=== PATIENT | female | born 1980 | race Caucasian/White ===

== ENCOUNTER 2017-04-08 07:43 | Emergency (ER) | payer OTHER ==
[2017-04-08] MEDS ORDERED: LIDOCAINE PATCH 5% TOP STA (08:10)
--- NOTE | 2017-04-08 08:13 | ED Physician Documentation ---
History of Present Illness - Stated complaint Stated Complaint: LT SIDE SHOULDER PX - Chief complaint Chief Complaint: Ext Problem - Additonal information Additional information: hx from pt 36 female healthy doubts insidious onset R shoulder lateral neck trap region pain few days ago - no trauma etc pain is sharp and stabbing worse with moving neck etc some tingling to R fingers but no weakness or numbness feels a little SOA 2/2 pain a little nausteaed 2/2 pain denies CP denies AP no leg pain or swelling tachy in triage Review of Systems Constitutional: denies: Fever, Chills Cardiac: denies: Chest pain / pressure Respiratory: reports: Dyspnea. denies: Cough GI: reports: Nausea. denies: Abdominal Pain, Vomiting : denies: Now EGA (doubts) Musculoskeletal: reports: Neck pain (right posterior), Back pain (R trap region) Neurologic: denies: Focal weakness, Numbness Endocrine: denies: Easy bruising / bleeding Immunocompromised: denies: Immunocompromised PD PAST MEDICAL HISTORY - Past Medical History Past Medical History: Yes PRODUCTION TRAINER: Ectopic - Past Surgical History Past Surgical History: Yes General: Appendectomy /PRODUCTION TRAINER: Tubal ligation - Present Medications Home Medications: Ambulatory Orders Medication Instructions Recorded Confirmed Cyclobenzaprine [Flexeril] 10 mg PO TID PRN #20 tablet 04/08/17 Ibuprofen [Motrin] 400 mg PO Q6H PRN #30 tablet 04/08/17 Lidocaine Patch 5% [Lidoderm Patch] 1 each TOP DAILY PRN #10 patch 04/08/17 - Allergies Allergies/Adverse Reactions: Allergies Allergy/AdvReac Type Severity Reaction Status Date / Time No Known Drug Allergies Allergy Verified 04/08/17 07:48 - Social History Does the pt smoke?: Yes Smoking Status: Current every day smoker Does the pt drink ETOH?: No Does the pt have substance abuse?: No - Immunizations Immunizations are current?: Yes - POLST Patient has POLST: No PD ED PE NORMAL - Vitals Vital signs reviewed: Yes - Neck Neck: Supple, no meningeal sign, Other (mm tightness and limioted ROM R potserior lat neck extending to trap region) - Cardiac Cardiac: RRR - Respiratory Respiratory: No respiratory distress, Clear bilaterally - Abdomen Abdomen: Soft, Non tender - Derm Derm: Normal color - Extremities Extremities: No edema, No calf tenderness / cord - Neuro Neuro: Alert and oriented X 3, No motor deficit, No sensory deficit Results - Vitals Vitals: Vital Signs - 24 hr 04/08/17 04/08/17 07:46 09:13 Temperature 36.3 C L 36.8 C Heart Rate 110 H 79 Respiratory 24 16 Rate Blood Pressure 128/84 H 118/94 H O2 Saturation 99 98 Oxygen O2 Source Room air - EKG (time done) 0822 Rate: Rate (enter#) (87) Rhythm: NSR [place]: LAD Intervals: Prolonged OK Ischemia: Normal ST segments - Labs Labs: Laboratory Tests 04/08/17 04/08/17 04/08/17 08:10 08:24 08:24 WBC 7.9 RBC 4.88 Hgb 14.0 Hct 42.3 MCV 86.7 MCH 28.7 MCHC 33.1 RDW 13.1 Plt Count 257 MPV 6.7 L Neut # 5.3 Lymph # 1.5 [place] # 0.4 Eos # 0.6 Baso # 0.1 Absolute Nucleated RBC 0.00 Nucleated RBC % 0.0 D-Dimer 245.4 Sodium Potassium Chloride Carbon Dioxide Anion Gap BUN Creatinine Estimated GFR (MDRD) Glucose Calcium Total Bilirubin AST ALT Alkaline Phosphatase Total Protein Albumin Globulin Albumin/Globulin Ratio Lipase Ur Specific [place] 1.025 Urine HCG, Qual NEGATIVE 04/08/17 08:24 WBC RBC Hgb Hct MCV MCH MCHC RDW Plt Count MPV Neut # Lymph # [place] # Eos # Baso # Absolute Nucleated RBC Nucleated RBC % D-Dimer Sodium 137 Potassium 4.3 Chloride 103 Carbon Dioxide 23 Anion Gap 11.0 BUN 11 Creatinine 0.6 Estimated GFR (MDRD) 114 Glucose 108 H Calcium 9.4 Total Bilirubin 0.4 AST 20 ALT 25 Alkaline Phosphatase 56 Total Protein 7.4 Albumin 4.1 Globulin 3.3 Albumin/Globulin Ratio 1.2 Lipase 18 L Ur Specific [place] Urine HCG, Qual - Rads (name of study) CXR Radiology: See rad report (NACPD specifically no pneumo on right and nl mediastinum) PD MEDICAL DECISION MAKING - ED course ED course: pain seems muscular but initial VS showed tachycardia which was concerning so got CXR EKG d dimer based on hx exam labs CXR do not think pt has a PE - not referred pain from cardiac resp or abd source will dc with symptomatic meds Departure - Departure Disposition: 01 Home, Self Care Clinical Impression: Muscle spasm of right shoulder Condition: Good Instructions: ED Spasm Neck No Injury Prescriptions: Cyclobenzaprine [Flexeril] 10 mg PO TID PRN #20 tablet PRN Reason: Spasms Ibuprofen [Motrin] 400 mg PO Q6H PRN #30 tablet PRN Reason: Pain Lidocaine Patch 5% [Lidoderm Patch] 1 each TOP DAILY PRN #10 patch PRN Reason: Pain Comments: All your tests came back reassuring - it does not seem the pain is due to a heart lung or abdominal problem. It appears to be muscle spasm and tightness causing the pain and I have prescribed several mediations to ease your discomfort. Please follow up with your PMD for a recheck if not better in 5 days. Return to the ER if worse or new symptoms develop Forms: Activity restrictions Discharge Date/Time: 04/08/17 09:18
[2017-04-08 08:27] LABS: HCG UR QUAL NEGATIVE
[2017-04-08] MEDS ORDERED: KETOROLAC 60 MG/2 ML VIAL IM STA (08:29)
[2017-04-08 08:35] LABS: BASOPHILS # (AUTO) 0.1 10^3/uL (0.0-0.1); BASOPHILS % (AUTO) 0.9 %; EOSINOPHILS # (AUTO) 0.6 10^3/uL (0.0-0.7); EOSINOPHILS % (AUTO) 7.3 %; LYMPHOCYTES # (AUTO) 1.5 10^3/uL (1.5-3.5); MEAN CORPUSCULAR HEMOGLOBIN 28.7 pg (27.0-31.0); MEAN CORPUSCULAR HGB CONC 33.1 g/dL (32.0-36.0); MEAN CORPUSCULAR VOLUME 86.7 fL (81.0-99.0); MEAN PLATELET VOLUME 6.7 fL (7.9-10.8); MONOCYTES # (AUTO) 0.4 10^3/uL (0.0-1.0); MONOCYTES % (AUTO) 4.9 %; NEUTROPHILS # (AUTO) 5.3 10^3/uL (1.5-6.6); NEUTROPHILS % (AUTO) 67.9 %; PLT - PLATELET COUNT 257 10^3/uL (130-450); RED BLOOD COUNT 4.88 10^6/uL (4.20-5.40); RED CELL DISTRIBUTION WIDTH 13.1 % (12.0-15.0); WHITE BLOOD COUNT 7.9 x10^3/uL (4.8-10.8)
[2017-04-08 08:46] LABS: ALBUMIN 4.1 g/dL (3.2-5.5); ALBUMIN/GLOBULIN RATIO 1.2 (1.0-2.2); BILIRUBIN,TOTAL 0.4 mg/dL (0.2-1.0); CALCIUM 9.4 mg/dL (8.5-10.3); CREATININE 0.6 mg/dL (0.4-1.0); TOTAL PROTEIN 7.4 g/dL (6.7-8.2)
[2017-04-08 09:14] VITALS: BP 118/94
--- NOTE | 2017-04-08 09:17 | XRAY Report ---
EXAM: CHEST RADIOGRAPHY 2 VIEWS EXAM DATE: 04/08/2017. CLINICAL HISTORY: R shoulder pain. SOA. COMPARISON: None. TECHNIQUE: PA and lateral views. FINDINGS: Lungs/Pleura: Normal vasculature. The lungs are clear. No pleural fluid or pneumothorax. A line overl ariana the right apex is artifactual, lung markings are visible superior to it, and the line extends of f of the right apex into the right axilla. Mediastinum: Normal cardiac and mediastinal contours. Bones: Minimal degenerative changes of the spine. IMPRESSION: Normal examination. [facility] Referring Provider Line: [phone] SITE ID: [id number]
== END 2017-04-08 09:18 | disposition home or self-care (01) ==
LOC: ED 07:43
DX: M62.838 Other muscle spasm (principal); R11.0 Nausea; F17.200 Nicotine dependence, unspecified, uncomplicated
CPT/HCPCS: 36415; 71046; 80053; 81025; 83690; 85025; 85379; 93005; 96372; 99283; 99284; A9270

== ENCOUNTER 2017-10-03 14:21 | Emergency (ER) | payer OTHER ==
[2017-10-03] MEDS ORDERED: IBUPROFEN 800 MG TABLET PO STA (17:12)
[2017-10-03 17:38] LABS: BILIRUBIN,URINE NEGATIVE (NEGATIVE); GLUCOSE, URINE (UA) NEGATIVE (NEGATIVE); KETONES,URINE (UA) NEGATIVE (NEGATIVE); LEUKOCYTE ESTERASE, URINE NEGATIVE (NEGATIVE); NITRITE,URINE NEGATIVE (NEGATIVE); OCCULT BLOOD,URINE LARGE (NEGATIVE); PROTEIN,URINE NEGATIVE (NEGATIVE); UROBILINOGEN,URINE 0.2 (NORMAL) E.U./dL (NORMAL)
[2017-10-03 17:58] LABS: CLARITY,URINE CLEAR (CLEAR)
[2017-10-03 18:00] LABS: BACTERIA,URINE Many /HPF (None Seen); SQUAMOUS EPITHELIAL CELL,UR MANY Squamous (<= Few)
[2017-10-03] MEDS ORDERED: SODIUM CHLORIDE 0.9% 1,000 ML IV ONE (18:15)
--- NOTE | 2017-10-03 18:16 | ED Physician Documentation ---
History of Present Illness - Stated complaint Stated Complaint: SHOULDER,BACK,ARM PX-FEMALE - Chief complaint Chief Complaint: Ext Problem - History obtained from History obtained from: Patient - Additonal information Additional information: The patient is a 36-year-old female who presents with myalgias involving her arms, shoulders, and back. She describes generalized muscular pain that started after 5 hours of paddling on an inner tube 2 days ago. Her pain is worse today than it was yesterday. She describes decreased urine output, but has not noticed any change in the color of her urine. She denies history of similar symptoms in the past. Review of Systems Constitutional: denies: Fever Nose: denies: Congestion Throat: denies: Sore throat Cardiac: denies: Chest pain / pressure Respiratory: denies: Dyspnea, Cough GI: denies: Abdominal Pain, Nausea, Vomiting : denies: Dysuria Skin: denies: Rash Musculoskeletal: denies: Back pain, Extremity pain Neurologic: denies: Focal weakness, Numbness, Headache PD PAST MEDICAL HISTORY - Past Medical History Past Medical History: Yes Cardiovascular: None Respiratory: None Endocrine/Autoimmune: None LEVELER: Ectopic - Past Surgical History Past Surgical History: Yes General: Appendectomy /LEVELER: Tubal ligation - Present Medications Home Medications: Ambulatory Orders Medication Instructions Recorded Confirmed Cyclobenzaprine [Flexeril] 10 mg PO TID PRN #20 tablet 04/08/17 Ibuprofen [Motrin] 400 mg PO Q6H PRN #30 tablet 04/08/17 Lidocaine Patch 5% [Lidoderm Patch] 1 each TOP DAILY PRN #10 patch 04/08/17 Ibuprofen 800 mg PO TID PRN #30 tablet 10/03/17 Sertraline [Zoloft] 50 mg 10/03/17 - Allergies Allergies/Adverse Reactions: Allergies Allergy/AdvReac Type Severity Reaction Status Date / Time No Known Drug Allergies Allergy Verified 04/08/17 07:48 - Social History Does the pt smoke?: Yes Smoking Status: Current every day smoker Does the pt drink ETOH?: No Does the pt have substance abuse?: No - Immunizations Immunizations are current?: Yes - POLST Patient has POLST: No PD ED PE NORMAL - Vitals Vital signs reviewed: Yes (Initially hypertensive.) - General General: Alert and oriented X 3, Well developed/nourished, Other (Overweight.) - HEENT HEENT: Atraumatic, Moist mucous membranes - Neck Neck: Supple, no meningeal sign, No bony TTP - Cardiac Cardiac: RRR, No murmur - Respiratory Respiratory: No respiratory distress, Clear bilaterally - Abdomen Abdomen: Soft, Non tender - Back Back: No CVA TTP - Derm Derm: No rash - Extremities Extremities: No edema, No calf tenderness / cord, Other (Generalized muscular tenderness to palpation, particularly along the shoulder girdle bilaterally.) - Neuro Neuro: Alert and oriented X 3, No motor deficit, No sensory deficit Results - Vitals Vitals: Oxygen O2 Source Room air - Labs Labs: Laboratory Tests 10/03/17 10/03/17 16:01 18:28 Sodium 137 Potassium 3.7 Chloride 103 Carbon Dioxide 27 Anion Gap 7.0 BUN 11 Creatinine 0.7 Estimated GFR (MDRD) 95 Glucose 99 Calcium 9.4 Total Creatine Kinase 213 Urine Color YELLOW Urine Clarity CLEAR Urine pH 6.0 Ur Specific [place] 1.025 Urine Protein NEGATIVE Urine Glucose (UA) NEGATIVE Urine Ketones NEGATIVE Urine Occult Blood LARGE H Urine Nitrite NEGATIVE Urine Bilirubin NEGATIVE Urine Urobilinogen 0.2 (NORMAL) Ur Leukocyte Esterase NEGATIVE Urine RBC 6-10 H Urine WBC 4-5 Ur Squamous Epith Cells MANY Squamous H Urine Bacteria Many H Ur Microscopic Review INDICATED Urine Culture Comments NOT INDICATED PD MEDICAL DECISION MAKING - ED course Complexity details: reviewed results, re-evaluated patient, considered differential, d/w patient ED course: The patient's presentation is most consistent with 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 The possibility of rhabdomyolysis was considered. However and there was no proteinuria, and her total creatinine kinase is normal at 213. Treatment in the emergency department included administration of normal saline 1 L IV and ibuprofen 800 mg orally. I discussed with her the expected course of illness, symptomatic treatment and outpatient follow-up, as well as potentially worrisome signs or symptoms that should prompt reevaluation in the emergency department. - Sepsis Event Vital Signs: Oxygen O2 Source Room air Departure - Departure Disposition: 01 Home, Self Care Clinical Impression: Myalgia, traumatic Condition: Stable Instructions: ED Muscle Aching Follow-Up: Ada Zee MD [Primary Care Provider] - Prescriptions: Ibuprofen 800 mg PO TID PRN #30 tablet PRN Reason: Pain Comments: Drink plenty of fluids. You can use ibuprofen, up to 800 mg 3 times daily for its anti-inflammatory effect. Let pain be your guide to activity level. Follow up with your primary physician within 1-2 weeks. Call to schedule appointment. Return to the emergency department if you develop increasing pain, increasingly dark colored urine, or otherwise worsening symptoms. Discharge Date/Time: 10/03/17 19:25
[2017-10-03 18:44] LABS: CALCIUM 9.4 mg/dL (8.5-10.3); CREATININE 0.7 mg/dL (0.4-1.0)
[2017-10-03 19:40] VITALS: BP 124/72
== END 2017-10-03 19:25 | disposition home or self-care (01) ==
LOC: ED 14:21
DX: T14.8XXA Other injury of unspecified body region, initial encounter (principal); X50.9XXA Other and unspecified overexertion or strenuous movements or postures, initial encounter; F17.200 Nicotine dependence, unspecified, uncomplicated
CPT/HCPCS: 36415; 80048; 81001; 82550; 96360; 99283; A9270; 81003; 87086